=== PATIENT | female | born 1965 | race Caucasian/White ===

== ENCOUNTER 2021-06-12 12:48 | Outpatient (CLI) | payer OTHER, SELFPAY ==
[2021-06-12] MEDS: 0.9% Saline Lock 10 ML Syringe IV (13:06)
[2021-06-12 13:07] VITALS: BP 129/77; PULSE 99; RESP 16; TEMP 36.8; O2SAT 97; BMI 31.3
[2021-06-12 13:57] VITALS: BP 113/57; PULSE 92; RESP 16; TEMP 36.8; O2SAT 98
[2021-06-12 14:30] VITALS: BP 121/64; PULSE 93; RESP 16; TEMP 36.8; O2SAT 98
[2021-06-12 14:56] VITALS: BP 128/60; PULSE 92; RESP 16; TEMP 36.8; O2SAT 96
== END 2021-06-12 15:03 | disposition home or self-care (01) ==
LOC: MS3OUT 12:49 → MS3 12:49
PROVIDERS: Referring Provider Nurse Practitioner Adult Health; Visit Provider Nurse Practitioner Adult Health
DX: Z23 Encounter for immunization (principal); U07.1 COVID-19
CPT/HCPCS: J7050; M0245; Q0245; A4216